=== PATIENT | female | born 1945 | race Hispanic/Latino ===

== ENCOUNTER 2025-08-23 13:37 | Emergency (ER) | payer MEDICARE, SELFPAY ==
[2025-08-23] VITALS (12 sets, daily range): BP systolic 152–190; BP diastolic 68–93; PULSE 60–83; RESP 16–18; TEMP 36.4; O2SAT 92–98; BMI 32.5
--- NOTE | 2025-08-23 14:01 | DI.CT.S_ITS ---
PROCEDURE: CT HEAD/BRAIN WO CON INDICATIONS: hit head on hook at carwa, laceration TECHNIQUE: Noncontrast 4.5 mm thick angled axial sections acquired from the foramen magnum to the vertex, with coronal and sagittal reformats. For radiation dose reduction, the following was used: automated exposure control, adjustment of mA and/or kV according to patient size. COMPARISON: None. FINDINGS: Image quality: Diagnostic. CSF spaces: Basal cisterns are patent. No extra-axial fluid collections. The ventricles are symmetric in size and shape. Brain: Oval 4 x 3 millimeter hyperdensity involving left frontal lobe deep white matter . Questionable adjacent vasogenic edema is noted. There is cerebral volume loss, with resultant ventricular and sulcal prominence. There are periventricular and deep white matter chronic small vessel ischemic changes. There is intracranial internal carotid artery atherosclerosis. Skull and face: Calvarium and visualized facial bones appear intact, without suspicious lesions. Sinuses: Visualized sinuses and mastoids are clear. IMPRESSION: 1. Focal hyperdensity involving left frontal lobe white matter and may represent parenchymal calcification. Focal parenchymal hemorrhage cannot be entirely excluded. Questionable adjacent vasogenic edema versus periventricular white matter chronic small vessel ischemic changes. No other area of intracranial bleed. No midline shift or mass effect. Clinical and CT follow-up is recommended. Dictated by: Jorge Rojas M.D. on 08/23/2025 at 14:21 Approved by: Jorge Rojas M.D. on 08/23/2025 at 14:24
--- NOTE | 2025-08-23 14:02 | ED_ITS ---
HPI - General Adult <Becky Shelia Rodas DO - Last Filed: 08/24/25 07:52> General Chief complaint: Wound/Laceration Stated complaint: Hit head at carwash , not on Blood thinners Time Seen by Provider: 08/23/25 14:01 Source: patient, RN notes reviewed and old records reviewed Mode of arrival: Ambulatory Limitations: no limitations History of Present Illness HPI narrative: 79-year-old female with no reported medical issues who presents with a complaint of hitting her head at the car wash. There has a metal hook she has been town start back up states she hit her head pretty hard but did cause a laceration to her scalp. Patient states that she started bleeding pretty much immediately and has not stopped this occurred about an hour ago. She felt sort of dazed but did not have any loss of consciousness. She denies any neck pain, no chest pain or shortness of breath, no nausea or vomiting no, numbness tingling weakness, difficulty with ambulation. No other GI or urinary symptoms. Patient states no aspirin or thinners. States she takes Tylenol as needed. Reports an allergy to codeine. No tobacco, alcohol or recreational drugs. Patient states tetanus was 10 years ago or more. Related Data Allergies Allergy/AdvReac Type Severity Reaction Status Date / Time codeine AdvReac Gastrointestinal Verified 08/23/25 14:04 Upset Review of Systems <Becky Rodas DO - Last Filed: 08/24/25 07:52> Review of Systems ROS Unobtainable: All systems reviewed & are unremarkable except as noted in HPI and below Exam <Becky Rodas DO - Last Filed: 08/24/25 07:52> Narrative Exam Narrative: GEN: Patient appears in mild distress. HEAD: Patient has a 2 cm laceration Armaan of the midline scalp minimal gap but there is a small amount of ooze, no raccoon/Moody sign. NECK: Nontender, painless range of motion, trachea midline Negative Nexus criteria, there was no midline line tenderness, distracting injury, altered mental status, neuro deficit, recent EtOH. EYES: PERRLA, EOMI ENT: External inspection normal, trachea is midline, TM's are normal no hemotypanum, Nares are clear, no septal hematoma, no dental or oral injury, airway is normal and with normal occlusion, No bony tenderness RESP: Chest is nontender and has symmetric movement, no ecchymosis, breath sounds are normal no crackles, wheezes or rales CVS: Heart sounds are normal, no murmur noted, No JVD. ABG/GI: Nontender, soft, normal bowel sounds, no distention, no organomegaly. NEURO: Oriented AOx3, neuro is grossly intact, sensation and motor is normal all 4 extremities moving, cranial nerves II through XII are intact, GCS is 15 PSYCH: Normal mood and affect SKIN: Intact, warm and dry, no crepitus and without decubitus BACK: No CVA tenderness, no vertebral tenderness, no step-off's, no crepitus EXT: Atraumatic, hips are nontender, no pedal edema, normal color and temperature, normal range of motion of extremities with normal tendon exam, 2+ pulses in all four extremities Initial Vital Signs Initial Vital Signs: Vital Signs Temperature 97.5 F L 08/23/25 13:48 Pulse Rate 72 08/23/25 13:48 Respiratory Rate 16 08/23/25 13:48 Blood Pressure 181/83 H 08/23/25 13:48 Pulse Oximetry 98 08/23/25 13:48 Oxygen Delivery Method Room Air 08/23/25 13:48 <Emmanuel Reyes, DO - Last Filed: 08/23/25 19:05> Initial Vital Signs Initial Vital Signs: Vital Signs Temperature 97.5 F L 08/23/25 13:48 Pulse Rate 72 08/23/25 13:48 Respiratory Rate 16 08/23/25 13:48 Blood Pressure 181/83 H 08/23/25 13:48 Pulse Oximetry 98 08/23/25 13:48 Oxygen Delivery Method Room Air 08/23/25 13:48 Procedures <Becky Rodas DO - Last Filed: 08/24/25 07:52> Laceration Repair Laceration 1: Site: scalp Size (cm): 2.1 Description: linear Depth: simple, single layer Local Anesthetic: other anesthetic (Topical lidocaine) Pre-repair: wound explored, irrigated extensively and deep structures intact Skin layer closed with: min (#3) Course <Becky Rodas DO - Last Filed: 08/24/25 07:52> Orders Ordered: Discontinued Medications Acetaminophen (Acetaminophen 325 Mg Tablet) 975 mg PO NOW ONE Stop: 08/23/25 15:03 Last Admin: 08/23/25 15:07 Dose: 975 mg Documented By: BRETT Diphtheria/Tetanus/Acell Pertussis (Tet,Diph,Pertuss(Acell),Vac/Pf 0.5 Ml Syringe) 0.5 ml IM .ONCE ONE Stop: 08/23/25 14:02 Last Admin: 08/23/25 15:06 Dose: 0.5 ml Documented By: BRETT Lidocaine/Prilocaine (Lidocaine/Prilocaine 5 Gm) 5 gm TOP NOW ONE Stop: 08/23/25 14:02 Last Admin: 08/23/25 14:09 Dose: 5 gm Documented By: RITIKA Vital Signs Vital signs: Vital Signs - 8 hr 08/23/25 13:48 08/23/25 15:14 Temperature 97.5 F L Pulse Rate 72 60 Respiratory Rate 16 18 Blood Pressure 181/83 H 190/86 H Pulse Oximetry 98 94 Oxygen Delivery Method Room Air Room Air <Emmanuel Reyes, DO - Last Filed: 08/23/25 19:05> Orders Ordered: Discontinued Medications Acetaminophen (Acetaminophen 325 Mg Tablet) 975 mg PO NOW ONE Stop: 08/23/25 15:03 Last Admin: 08/23/25 15:07 Dose: 975 mg Documented By: BRETT Diphtheria/Tetanus/Acell Pertussis (Tet,Diph,Pertuss(Acell),Vac/Pf 0.5 Ml Syringe) 0.5 ml IM .ONCE ONE Stop: 08/23/25 14:02 Last Admin: 08/23/25 15:06 Dose: 0.5 ml Documented By: BRETT Lidocaine/Prilocaine (Lidocaine/Prilocaine 5 Gm) 5 gm TOP NOW ONE Stop: 08/23/25 14:02 Last Admin: 08/23/25 14:09 Dose: 5 gm Documented By: RITIKA Vital Signs Vital signs: Vital Signs - 8 hr 08/23/25 13:48 08/23/25 15:14 Temperature 97.5 F L Pulse Rate 72 60 Respiratory Rate 16 18 Blood Pressure 181/83 H 190/86 H Pulse Oximetry 98 94 Oxygen Delivery Method Room Air Room Air Medical Decision Making <Becky Rodas, - Last Filed: 08/24/25 07:52> MDM Narrative Medical decision making narrative: Head CT, focal hyperdensity involving left frontal lobe white matter may represent parenchymal calcification, focal parenchymal hemorrhage can not be entirely excluded. Questionable adjacent vasogenic edema versus periventricular white matter chronic small-vessel ischemic changes. No other area of trying to bleed. No midline shift or mass effect. Clinical and CT follow up as recommended. Patient's tetanus was updated. Patient had a topical lidocaine and repair of her laceration. Discussed findings with the patient she is agreeable to stay for repeat head CT. Imaging pushed to [facility], spoke with coordinator @ [phone]. Discussed there is a focal hyperdensity, possible calcification versus punctate bleed with vasogenic edema repeat head CT ordered for 4 hours which he would be at 1800. Patient is asymptomatic. No acute neurologic changes on exam. Patient signed out to Dr. Reyes while are waiting repeat imaging. Case d/w Dr.Dominic Ortiz Neurosurgeon at repeat ct scan in [address] scan shows stable appearance of parenchymal calcification in the left centrum semiovale without other findings to suggest acute hemorrhage or acute in tracranial abnormality. <Emmanuel Reyes, DO - Last Filed: 08/23/25 19:05> Imaging Data Extremity x-ray #1: Radiologist's Impression: [address] [address] [address] Scan Report Signed Patient: Barby Gibson MR#: [id number] : 1945 Acct:[id number] Age/Sex: 79 / F Date of Service: 08/23/25 Loc: ED Accession Number: [id number] Procedure: CT head/brain wo con Ordering Provider: Becky Rodas D.O. PROCEDURE: CT HEAD/BRAIN WO CON INDICATIONS: repeat head CT ? bleed vs. calcification TECHNIQUE: Noncontrast 4.5 mm thick angled axial sections acquired from the foramen magnum to the vertex, with coronal and sagittal reformats. For radiation dose reduction, the following was used: automated exposure control, adjustment of mA and/or kV according to patient size. COMPARISON: Merged With [facility], CT, CT HEAD/BRAIN WO CON, 08/23/2025, 14:07. FINDINGS: Image quality: Diagnostic. CSF spaces: Basal cisterns are patent. No extra-axial fluid collections. The ventricles are symmetric in size and shape. Brain: No intracranial bleeds or mass effect. Unchanged parenchymal calcification in the left centrum semiovale. No adjacent edema. There is cerebral volume loss, with resultant ventricular and sulcal prominence. There are periventricular and deep white matter chronic small vessel ischemic changes. There is intracranial internal carotid artery atherosclerosis. Skull and face: Calvarium and visualized facial bones appear intact, without suspicious lesions. Sinuses: Mucosal thickening of the ethmoid air cells and dependent right m axillary sinus. The mastoid air cells are clear. IMPRESSION: Stable appearance of a parenchymal calcification in the left centrum semiovale without other findings to suggest acute hemorrhage or acute intracranial abnormality MDM Narrative Medical decision making narrative: Head CT, focal hyperdensity involving left frontal lobe white matter may represent parenchymal calcification, focal parenchymal hemorrhage can not be entirely excluded. Questionable adjacent vasogenic edema versus periventricular white matter chronic small-vessel ischemic changes. No other area of trying to bleed. No midline shift or mass effect. Clinical and CT follow up as recommended. Patient's tetanus was updated. Patient had a topical lidocaine and repair of her laceration. Discussed findings with the patient she is agreeable to stay for repeat head CT. Imaging pushed to [facility], spoke with coordinator @ [phone]. Discussed there is a focal hyperdensity, possible calcification versus punctate bleed with vasogenic edema repeat head CT ordered for 4 hours which he would be at 1800. Patient signed out to Dr. Reyes while are waiting repeat imaging. Case d/w Dr.Dominic Ortiz Neurosurgeon at repeat ct scan in [address] scan shows stable appearance of parenchymal calcification in the left centrum semiovale without other findings to suggest acute hemorrhage or acute intracranial abnormality. Discharge Plan Departure Patient Disposition: Home Clinical Impression: Laceration of scalp, Head injury Instructions: DI for Laceration Repair -- Min Activity Restrictions/Additional Instructions: Wound Care: Keep wound(s) clean and dry. Wash daily with soap and water only. Do not use over the counter products (alcohol or peroxide)on the wounds unless instructed by a physician. If wound condition worsens (increased/expanding redness, developing fluid blisters, or worsening pain), either contact your doctor for an urgent re- assessment , or return to the Emergency Department. Return to the ED, urgent care, or visit a primary care doctor for removal of min in 7-10 days Return if fever greater than 100.4 Fahrenheit, increased swelling, increasing pain or worsening symptoms such as increased discharge or spreading redness, severe headaches, new neck or back pain, vomiting, new numbness, tingling or weakness or other new or concerning changes. Stand Alone Forms: Patient Portal/API
--- OUTSIDE RECORDS SUMMARY | 2025-08-23 14:06 | XMS_ITS | Encounter Summary ---
Author Organization [facility] Address [address] [place] [address] Care Team Providers Care Concession Cashier Name Role Phone Becky Mccarty MD Primary Care Provider Encounter Details Date Type Department Care Team ([facility] Contact Info) Description 06/10/2024 Abstract [facility] [place] [address] [place] [phone] Becky Mccarty MD [address] [place] [id number] Social History Tobacco Use Types Packs/Day Years Used Date Smoking Tobacco: Former Cigarettes 0.3 24.6 0 1995 - 04/28/2020 Smokeless Tobacco: Never Comments:Down to 1 pack in A pril 2018 Alcohol Use Standard Drinks/Week Comments Not Currently 0 (1 standard drink = 0.6 oz pur e alcohol) PHQ-2 Answer Date Recorded PHQ-2 Score 0 07/23/2023 Comments No Sex and Gender Information Value Date Recorded Sex Assigned at Not on file Legal Sex Female 12:29 PM PDT Gender Identity Not on file Sexual Orientation Not on file 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 [address] [phone] Samira Hernandes MD [address] [phone] documented as of this encounter Goals Goal Patient Goal Type Associated Problems Recent Progress Patient-Stated? Author To be met in </= 9 visits PT [employer] Driver No Danae Ha DPT Note: 1) Pt to receive >/= 50/80 UEFI for decreased functional impairment 2) Pt to demonstrate >/= 4+/5 MMT strength Left UE without pain or popping for improved tolerance to lifting. 3) Pt to demonstrate Left UE AROM WNL's compared to Rt without end range pain. 4) pt to demonstrate PROM 90/90 ER within 10 degrees from Rt To be met in </= 4 visits PT Short Term No Danae Ha DPT Note: 1. Patient will be independent with prescribed home exercise program established by therapy team for support of therapy services. documented as of this encounter Visit Diagnoses Not on filedocumented in this encounter Care Teams Concession Cashier Relationship Specialty Start Date End Date Becky Mccarty MD PCP - General Family Medicine 09/07/21 documented as of this encounter
[2025-08-23] MEDS: LIDOCAINE/PRILOCAINE 5 GM TOP (14:09)
[2025-08-23] MEDS: TET,DIPH,PERTUSS(ACELL),VAC/PF 0.5 ML SYRINGE IM (15:06)
[2025-08-23] MEDS: ACETAMINOPHEN 325 MG TABLET 975 MG PO (15:07)
--- NOTE | 2025-08-23 18:00 | DI.CT.S_ITS ---
PROCEDURE: CT HEAD/BRAIN WO CON INDICATIONS: repeat head CT ? bleed vs. calcification TECHNIQUE: Noncontrast 4.5 mm thick angled axial sections acquired from the foramen magnum to the vertex, with coronal and sagittal reformats. For radiation dose reduction, the following was used: automated exposure control, adjustment of mA and/or kV according to patient size. COMPARISON: [facility], CT, CT HEAD/BRAIN WO CON, 08/23/2025, 14:07. FINDINGS: Image quality: Diagnostic. CSF spaces: Basal cisterns are patent. No extra-axial fluid collections. The ventricles are symmetric in size and shape. Brain: No intracranial bleeds or mass effect. Unchanged parenchymal calcification in the left centrum semiovale. No adjacent edema. There is cerebral volume loss, with resultant ventricular and sulcal prominence. There are periventricular and deep white matter chronic small vessel ischemic changes. There is intracranial internal carotid artery atherosclerosis. Skull and face: Calvarium and visualized facial bones appear intact, without suspicious lesions. Sinuses: Mucosal thickening of the ethmoid air cells and dependent right maxillary sinus. The mastoid air cells are clear. IMPRESSION: Stable appearance of a parenchymal calcification in the left centrum semiovale without other findings to suggest acute hemorrhage or acute intracranial abnormality Dictated by: Girish Pepper M.D. on 08/23/2025 at 18:37 Approved by: Girish Pepper M.D. on 08/23/2025 at 18:40
== END 2025-08-23 19:32 | disposition home or self-care (01) ==
PROVIDERS: Emergency Provider Family Medicine
DX: S01.01XA Laceration without foreign body of scalp, initial encounter (principal); Z23 Encounter for immunization; W18.09XA Striking against other object with subsequent fall, initial encounter
CPT/HCPCS: 12001; 70450; 99284; 90715